=== PATIENT | female | born 1995 | race African-American/Black ===

== ENCOUNTER 2017-04-28 05:37 | Inpatient (IN) ==
[2017-04-28] MEDS ORDERED: BUTORPHANOL 2 MG/ML VIAL IV PRN (05:49)
[2017-04-28] MEDS ORDERED: ACETAMINOPHEN 325 MG TABLET PO PRN ×2 (05:49→11:22)
[2017-04-28] MEDS ORDERED: ONDANSETRON 4 MG/2 ML VIAL IV PRN ×2 (05:49→11:22)
[2017-04-28] MEDS ORDERED: OXYTOCIN/LR 20 UNIT/1,000 ML BAG IV SCH (06:00)
[2017-04-28] MEDS: LACTATED RINGERS 1,000 ML IV SCH ×2 (06:10→09:04)
[2017-04-28 06:32] LABS: Basophils % 0.4 % (0.0-0.8); Eosinophils # 0.2 10*3/uL (0.0-0.87); Eosinophils % 1.9 % (0.00-10.9); Hematocrit 28.1 VOL% (35.7-47.0); Hemoglobin 8.9 GM/DL (12.0-16.0); Immature Granulocytes % 0.8 %; Immature Granulocytes Absolute 0.06 #; Lymphocytes # 2.1 10*3/uL (1.4-4.0); Lymphocytes % 26.3 % (21.3-54.2); Mean Corpuscular HGB Conc 31.7 GM/DL (32-36); Mean Corpuscular Hemoglobin 25 PG (27-34); Mean Corpuscular Volume 79.6 FL (87-102); Mean Platelet Volume 12.9 FL (9.6-12.0); Monocytes # 0.7 10*3/uL (0.11-0.8); Monocytes % 9.3 % (1.7-12.7); Neutrophils # 4.8 10*3/uL (1.4-7.4); Neutrophils % 61.3 % (38.7-73.9); Platelet Count 204 T/CUMM (130-400); Red Blood Count 3.53 MC/CUMM (3.8-5.5); White Blood Count 7.9 T/CUMM (4-12)
[2017-04-28] MEDS ORDERED: AMPICILLIN INJ 2,000 MG in SODIUM CHLORIDE 0.9% 100 ML IV ONE (07:02)
--- NOTE | 2017-04-28 07:16 | OB/GYN History & Physical ---
History of Present Illness Chief complaint: at 39+4 weeks elective induction History of present illness: Ms. Mei is a 22 year old female 2 para 1 at 39+4 weeks estimated gestational age admitted for elective induction. Ultrasound estimated weight is 7 lbs. 6 oz. with adequate clinical pelvimetry. The risks benefits alternatives explained patient detail informed was obtained for the above procedure. Presentation is confirmed vertex by ultrasound Home Medications Medication Instructions Recorded Confirmed Type No Known Home Medications [No 04/28/17 04/28/17 History Known Home Medications] Allergies Allergy/AdvReac Type Severity Reaction Status Date / Time No Known Allergies Allergy Verified 04/01/15 18:02 12 point system: reviewed and no additional remarkable complaints except as stated Medical,Surgical,& Family Hx - Medical History Musculoskeletal: No history of: Amputation Reproductive: History of: Reproductive Problems () No history of: Ectopic , Complication - Surgical History HEENT Surgeries: Patient denies: Eye Surgery, Tonsilectomy & Adenoidectomy Abdominal Surgeries: Patient denies: Abdominal Surgery Reproductive Surgeries: Patient denies;: Section - Family History Family History: Reports;: Family Diabetes (MGF), Family Hypertension (MGM, MGF) Denies;: Family Anesthesia Reaction, Family Cancer, Family Heart Disease, Family Hematology, Family Psychiatric Problems, Family Stroke, Additional Family History - Social History Smoking Status: Never smoker Frequency of Alcohol Use: None Type of Drug Use: None 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 Vitals: Vital Signs Temp Pulse Resp BP 04/28/17 05:48 97.8 F 113 H 18 118/68 General appearance: no acute distress - Head Head exam: Present: normal inspection, normocephalic, atraumatic - Neck Neck exam: Present: normal inspection - Respiratory Respiratory exam: Present: clear to auscultation bilaterally - Breast Breasts: as per HPI Menstruation: as per HPI - Cardiovascular Cardiovascular exam: Present: regular rate and rhythm - GI/Abdominal GI/Abdominal exam: Present: normal bowel sounds - Extremities Exam Extremities exam: Present: normal inspection, normal capillary refill - Back Exam Back exam: Present: normal inspection - Neurological Exam Neurological exam: Present: alert, oriented X3 - Psychiatric Psychiatric exam: Present: normal affect, normal mood - Skin Skin exam: Present: normal color, warm Results - Labs CBC & BMP: 04/28/17 06:13
[2017-04-28] MEDS ORDERED: CITRIC ACID/SODIUM CITRATE 30 ML UDCUP PO ONE (08:10)
[2017-04-28] MEDS ORDERED: LACTATED RINGERS 1,000 ML IV ONE (08:10)
[2017-04-28] MEDS ORDERED: PROMETHAZINE 25 MG/1 ML VIAL IM ONE (08:10)
[2017-04-28] MEDS ORDERED: FAMOTIDINE 20 MG/2 ML VIAL IV ONE (08:10)
[2017-04-28] MEDS ORDERED: fentaNYL 2 MCG/ROPIV 0.2% EPID 150 ML EPIDURAL SCH (08:10)
[2017-04-28] MEDS ORDERED: diphenhydrAMINE 50 MG/1 ML VIAL IV PRN ×2 (08:10)
[2017-04-28] MEDS ORDERED: ePHEDrine 50 MG/ML AMP IV PRN (08:10)
[2017-04-28] MEDS ORDERED: ONDANSETRON 4 MG/2 ML VIAL IV ONE (08:10)
[2017-04-28] MEDS ORDERED: hydrOXYzine HCL 25 MG/1 ML VIAL IM PRN (08:10)
[2017-04-28] MEDS ORDERED: AMPICILLIN INJ 1,000 MG in SODIUM CHLORIDE 0.9% 100 ML IV SCH (11:00)
[2017-04-28] MEDS ORDERED: MEASLES/MUMPS/RUBELLA VACCINE 0.5 ML VIAL SUBCUT ONE (11:22)
[2017-04-28] MEDS ORDERED: BISACODYL 10 MG SUPP RECTAL PRN (11:22)
[2017-04-28] MEDS ORDERED: BENZOCAINE 20%/MENTHOL 0.5% SPRAY 56 GM CAN TOP PRN (11:22)
[2017-04-28] MEDS ORDERED: HYDROCORTISONE 2.5% RECTAL CREAM 30 GM TUBE TOP PRN (11:22)
[2017-04-28] MEDS ORDERED: oxyCODONE/ACETAMINOPHEN 5-325 MG TABLET PO PRN (11:22)
[2017-04-28] MEDS ORDERED: WITCH HAZEL PADS 100/JAR TOP PRN (11:22)
[2017-04-28] MEDS ORDERED: DIPH/TET/ACEL PERT BOOSTER VACCINE 0.5 ML VIAL IM ONE (11:22)
[2017-04-28] MEDS ORDERED: RHO(D) IMMUNE GLOBULIN 300 MCG SYRINGE IM ONE (11:22)
[2017-04-28] MEDS ORDERED: OXYTOCIN/LR 20 UNIT/1,000 ML BAG IV ONE (11:22)
[2017-04-28] MEDS ORDERED: LANOLIN 50% CREAM 0.3 OZ TUBE TOP PRN (11:22)
--- NOTE | 2017-04-28 11:22 | OB/GYN Progress Note ---
HAT COPYIST - PN: Subj Interval history: This Dr. Mujica dictating vaginal delivery And in LDR environment under sterile conditions, the patient progressed to completely dilated. She was allowed to push and under [epidural] anesthesia had a normal spontaneous vaginal delivery of a live born female unweighed Apgars pending over a intact perineum. The 's nose and oropharynx were bulb and DeLee suctioned, and the infant had spontaneous cry after delivery. The cord was doubly clamped and cut and the was handed over to the pediatric team for care. Cord blood was obtained the placenta delivered spontaneously intact and IV Pitocin was done. There were no cervical tears. There were no periurethral tears. Estimated blood loss was 250 mL. There were no complications. The bladder was emptied using a catheter prior to delivery. All sponge needle and instrument counts were correct -3 at the end of the delivery. The infant was taken to nursery in stable condition Exam HAT COPYIST - Constitutional Vitals: Vital Signs Temp Pulse Resp BP 04/28/17 08:00 97.6 F 89 19 131/79 04/28/17 05:48 97.8 F 113 H 18 118/68 Results - Labs CBC & BMP: 04/28/17 06:13
--- NOTE | 2017-04-28 12:22 | Anesthesia Post-Op ---
Anesthesia Post OP - Post Ansesthetic Evaluation Patient seen in post op: Yes Resp: within normal limits CV: within normal limits Mental: within normal limits Temp: within normal limits [id number]: within normal limits Nausea and Vomiting: within normal limits Pain: within normal limits
[2017-04-28] MEDS: DOCUSATE SODIUM 100 MG CAPSULE PO SCH (20:31)
[2017-04-28] MEDS: IBUPROFEN 800 MG TABLET PO PRN (21:04)
[2017-04-29] MEDS: oxyCODONE/ACETAMINOPHEN 5-325 MG TABLET PO PRN ×2 (00:54→19:46)
[2017-04-29 05:30] LABS: Basophils # 0.1 10*3/uL (0.0-0.2); Basophils % 0.5 % (0.0-0.8); Eosinophils # 0.2 10*3/uL (0.0-0.87); Eosinophils % 2.3 % (0.00-10.9); Hematocrit 25.6 VOL% (35.7-47.0); Hemoglobin 8.2 GM/DL (12.0-16.0); Immature Granulocytes % 0.7 %; Immature Granulocytes Absolute 0.06 #; Lymphocytes # 2.7 10*3/uL (1.4-4.0); Lymphocytes % 29.2 % (21.3-54.2); Mean Corpuscular Hemoglobin 25 PG (27-34); Mean Corpuscular Volume 78.5 FL (87-102); Mean Platelet Volume 12.8 FL (9.6-12.0); Monocytes % 11.3 % (1.7-12.7); Neutrophils # 5.1 10*3/uL (1.4-7.4); Platelet Count 154 T/CUMM (130-400); Red Blood Count 3.26 MC/CUMM (3.8-5.5); Red Cell Distribution Width 15.8 % (9.3-17.3); White Blood Count 9.1 T/CUMM (4-12)
--- NOTE | 2017-04-29 08:00 | OB/GYN Progress Note ---
FRAMER - PN: Subj Interval history: Patient is doing well she is eating ambulating and voiding She is afebrile and her vital signs are stable Her fundus is firm and contracted She has decreased lochia Assessment #1 day #1 doing well Plan continue present management with expected DC tomorrow Exam FRAMER - Constitutional Vitals: Vital Signs Temp Pulse Resp BP Pulse Ox 04/29/17 07:46 97.3 F L 71 18 117/64 98 04/29/17 04:00 97.6 F 87 18 121/81 04/29/17 02:00 18 04/29/17 00:00 97.1 F L 87 18 129/71 04/28/17 20:00 97.9 F 70 20 124/78 04/28/17 12:00 80 20 133/74 04/28/17 08:00 97.6 F 89 19 131/79 Results - Labs CBC & BMP: 04/29/17 04:45
[2017-04-29] MEDS: DOCUSATE SODIUM 100 MG CAPSULE PO SCH ×2 (08:58→20:54)
[2017-04-29] MEDS: FERROUS SULFATE 325 MG TABLET PO SCH ×2 (08:58→20:54)
[2017-04-29] MEDS: IBUPROFEN 800 MG TABLET PO PRN ×2 (12:27→19:46)
[2017-04-30 07:26] VITALS: BP 106/66
[2017-04-30] MEDS: DOCUSATE SODIUM 100 MG CAPSULE PO SCH (08:08)
[2017-04-30] MEDS: FERROUS SULFATE 325 MG TABLET PO SCH (08:08)
--- NOTE | 2017-04-30 08:48 | Discharge Summary ---
Hospital Course - Hospital Course Hospital Course: patient did well. She had quick return of bowel bladder function management afebrile and normotensive throughout her hospitalization. Specialty Discharge - Follow Up or Referrals Follow up with: Tanvir Mujica MD [Physician] - Discharge Plan - Discharge Data Disposition: Disch To Home/Self Care Condition at Discharge: Stable Discharge Diet: regular diet Activity: resume usual activities as tolerated, other (Pelvic rest) Hygiene: may shower Weight Bearing at Discharge: full weight bearing Driving: no restrictions Contact your physician if you experience:: fever over 101, Difficulty voiding, Redness or swelling, Nausea/Vomiting, Shortness of breath, Bleeding, pain uncontrolled by pain medications - Discharge Medications New Ferrous Sulfate Tab [Feosol Original Tab] 325 mg PO BID tablet HYDROcodone/ACETAMIN 5-325 [Motley 5-325] 1 tablet PO Q4H PRN #10 tablet PRN Reason: Abdominal Pain Witch Yadira Pads [Tucks Pads] 1 applic TOP Q4H PRN applic PRN Reason: Hemorrhoids Ibuprofen Tab [Motrin Tab] 800 mg PO Q6H PRN tablet PRN Reason: Pain Moderate (4-7) - Follow Up or Referral Follow Up: Tanvir Mujica MD [Physician] - 2 Weeks - Forms/Instructions Instructions: Depression (GEN), Perineal Care (DC), Vaginal Delivery (DC), Bleeding (DC) Exam - Constitutional Vitals: Period Temp Pulse Resp BP Sys/Wright Pulse Ox Last 24 Hr 97.4 F-98.4 F 59-84 18-20 106-136/66-85 97-99 DS: Provider Date of admission: 04/28/17 05:49 Primary care physician: . No PCP Attending physician on admission: Reggie Corrigan Consults: 04/28/17 05:49 Consult to Anesthesiology [CONS] Routine Consulting Provider: Reason for Anesthesiology: Epidural Consult Comment: Epidural for pain managment 04/28/17 11:22 Consult to Stave Bolt Equalizer [CONS] Routine Consult Stave Bolt Equalizer: Breast Feeding Discharging clinician: Reggie Corrigan Expected date of discharge: 04/30/17
== END 2017-04-30 12:40 | disposition home or self-care (01) | DRG 560 ==
LOC: N.LDOUT 05:37 → N.LD 05:40 → N.OB 17:50
PROVIDERS: ADMIT Specialist; ATTEND Specialist